=== PATIENT | male | born 2005 | race African-American/Black ===

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

== ENCOUNTER 2024-05-30 10:15 | Emergency (ER) | payer OTHER, SELFPAY ==
[2024-05-30] MEDS ORDERED: Ibuprofen 200 MG TAB ONE (10:37)
== END 2024-05-30 11:19 | disposition home or self-care (01) ==
LOC: ERS 10:15
DX: M77.8 Other enthesopathies, not elsewhere classified (principal)
CPT/HCPCS: 99283